=== PATIENT | male | born 1975 | race Caucasian/White ===

== ENCOUNTER 2018-02-09 09:14 | Emergency (ER) | payer OTHER ==
[2018-02-09] MEDS ORDERED: ASPIRIN 81 MG CHEWABLE TABLET ONE (10:08)
[2018-02-09] MEDS ORDERED: Morphine 2 MG/2 ML SYR ONE (10:09)
[2018-02-09] MEDS ORDERED: NA CHLORIDE 0.9% 1,000 ML ONE (10:09)
[2018-02-09 10:13] LABS: Absolute Lymphocytes (CBC) 1.1 K/uL (0.7-4.9); Absolute Monocytes 0.6 K/uL (0.1-1.3); Absolute Neutrophil 3.5 K/uL (1.8-8.0); Basophils % 0.7 % (0-1.3); Eosinophils % 1.7 % (0-4.4); Hematocrit 50.9 % (39.6-49.0); Lymphocytes % 20.4 % (15.3-44.8); MCH 35.2 pg (27.0-35.0); MCV 101.5 fL (80-100); MPV 7.7 fL (7.6-11.3); Monocytes % 10.7 % (3.3-12.3); RBC Red Blood Cell Count 5.02 M/uL (4.33-5.43)
[2018-02-09 10:17] LABS: Protime INR 0.93
[2018-02-09 10:28] LABS: Bicarbonate 27 mEq/L (21-31); Glucose Level 104 mg/dL (65-120); Potassium 3.8 mEq/L (3.6-5.0); Sodium Level 134 mEq/L (135-145)
--- NOTE | 2018-02-09 10:32 | RAD REPORT ---
EXAM DESCRIPTION: Callie Single View02/09/2018 10:25 am CLINICAL HISTORY: Chest pain COMPARISON: none FINDINGS: The lungs appear clear of acute infiltrate. The heart is normal size IMPRESSION: No acute abnormalities displayed
[2018-02-09 10:34] LABS: ALT/SGPT 84 IU/L (10-60); AST/SGOT 159 IU/L (10-42); Albumin 4.4 g/dL (3.2-5.5); Alkaline Phosphatase 74 IU/L (42-121); BUN Blood Urea Nitrogen 10 mg/dL (6-20); Bilirubin Direct 0.4 mg/dL (0-0.2); Bilirubin Total 1.8 mg/dL (0.3-1.2); Creatine Phosphokinase 90 IU/L (22-269); Magnesium 1.6 mg/dL (1.8-2.5); Protein, Total 7.8 g/dL (6.0-8.3)
[2018-02-09 10:37] LABS: CKMB Creatine Kinase MB 1.2 ng/ml (0.3-4.0)
[2018-02-09 11:01] LABS: Lipase 151 U/L (22-51)
--- NOTE | 2018-02-09 11:45 | RAD REPORT ---
EXAM DESCRIPTION: CT - Chest Abdomen W Con - 02/09/2018 11:31 am CLINICAL HISTORY: Chest pain, upper abdominal pain, abnormal liver function COMPARISON: None. TECHNIQUE: During dynamic enhancement using 100 milliliters nonionic IV contrast, axial 5 millimeter thick images of the chest, abdomen and pelvis were obtained. Biphasic technique was utilized through the abdomen. Oral contrast was administered. All CT scans are performed using dose optimization technique as appropriate and may include automated exposure control or mA/KV adjustment according to patient size. FINDINGS: The lungs are clear of mass and infiltrate. No pneumothorax or pleural effusion. No ches t wall mass or abnormal axillary lymphadenopathy seen. No pericardial thickening or effusion. Aorta and pulmonary arterial tree enhance normally. No mediastinal or hilar mass or lymphadenopathy. Patien t has a mild to moderate amount of pneumomediastinum. No endobronchial mass or airway wall defect jeanette ntifiable. There is no esophageal wall thickening, mass or focal defect identifiable. No fluid in the mediastinum. Liver shows diffuse fatty infiltration with no focal liver lesion identifiable. No splenomegaly or fo diana splenic abnormality. A 12 millimeter cyst is present at the pancreatic tail. Trace amount of stra nding is seen in the tissues adjacent to the head of the pancreas. There is some subtle heterogeneity of the pancreatic head parenchyma but no clearly defined mass. Minimal pancreatitis is suspected. Ga llbladder and biliary tree are normal. Symmetric renal function is seen with no hydronephrosis, mass or other significant finding. No adren al abnormalities. No dilated bowel loops or focal ball bowel wall thickening. No free air, free fluid or inflammatory stranding. No hernia, mass or bulky lymphadenopathy. No significant bone or vascular finding. IMPRESSION: Mild to moderate amount of pneumomediastinum without identifiable etiology. Mild pancreatitis changes are evident. There is some heterogeneity of the pancreatic head parenchyma without a definitive mass seen. Correlation is needed with any pancreatitis laboratory findings. After medical management and resolut ion of the acute event, MR imaging may be helpful to determine if the pancreatic head heterogeneity i s clear of mass. Diffuse fatty infiltration of the liver.
--- NOTE | 2018-02-09 12:18 | EKG ---
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
[2018-02-09 12:54] LABS: Urine Blood NEGATIVE (NEG); Urine Glucose NEGATIVE (NEG); Urine Protein NEGATIVE (NEG)
[2018-02-09] MEDS ORDERED: PIPER/TAZO/NS 3.375gm 3.375 GM/100 ML BAG ONE (13:00)
--- NOTE | 2018-02-09 13:46 | EDPHYS ---
Physician Documentation [facility] Name: Clif Gabriel Age: 42 yrs Sex: Male : 1975 Arrival Date: 02/09/2018 Time: 09:17 Bed 18 Private MD: None, None ED Physician Hasmukh Barroso HPI: 02/09 09:57 This 42 yrs old Male presents to ER via Ambulatory with complaints of Chest cp Tightness, Breathing Difficulty. 09:57 The patient or guardian reports chest pain that is located primarily in the substernal cp area, epigastric area. 09:57 Onset: 2 day(s) ago. The pain does not radiate. Associated signs and symptoms: cp Pertinent positives: shortness of breath, Pertinent negatives: cough, headache, lower extremity pain, lower extremity swelling, near syncope, palpitations, syncope, vomiting. 09:57 The chest pain is described as a pressure. cp 09:57 Duration: The patient or guardian reports a single episode, that is still ongoing, and cp unchanged. Historical: - Allergies: 09:48 NKA; iw - Home Meds: 09:48 None [Active]; iw - PMHx: 09:48 None; iw - PSHx: 09:48 Hernia repair; iw - Immunization history:: Adult Immunizations not up to date. - Social history:: Smoking status: Patient uses tobacco products, chewing tobacco. ROS: 10:05 Constitutional: Negative for body aches, chills, fever, poor PO intake. cp 10:05 Eyes: Negative for injury, pain, redness, and discharge. cp 10:05 ENT: Negative for drainage from ear(s), ear pain, sore throat, difficulty swallowing, difficulty handling secretions. 10:05 Neck: Negative for pain with movement, pain at rest, stiffness, swollen nodes, bony tenderness. 10:05 Cardiovascular: Positive for chest pain, of the retrosternal, Negative for edema, palpitations. 10:05 Respiratory: Positive for shortness of breath, Negative for cough, wheezing. 10:05 Abdomen/GI: Positive for abdominal pain, of the epigastric area, Negative for vomiting, diarrhea, constipation, dysphagia, black/tarry stool, rectal bleeding. 10:05 Back: Negative for pain at rest, pain with movement, radiated pain. 10:05 Skin: Negative for cellulitis, rash. 10:05 Neuro: Negative for altered mental status, dizziness, headache, syncope, near syncope, weakness. 10:05 All other systems are negative. Exam: 10:12 Constitutional: The patient appears in no acute distress, alert, awake, cp non-diaphoretic, non-toxic, well developed, well nourished. 10:12 Head/Face: Normocephalic, atraumatic. cp 10:12 Eyes: Pupils equal round and reactive to light, extra-ocular motions intact. Lids and cp lashes normal. Conjunctiva and sclera are non-icteric and not injected. Cornea within normal limits. Periorbital areas with no swelling, redness, or edema. ENT: Nares patent. No nasal discharge, no septal abnormalities noted. Tympanic membranes are normal and external auditory canals are clear. Oropharynx with no redness, swelling, or masses, exudates, or evidence of obstruction, uvula midline. Mucous membranes moist. Neck: Trachea midline, no thyromegaly or masses palpated, and no cervical lymphadenopathy. Supple, full range of motion without nuchal rigidity, or vertebral point tenderness. No Meningismus. Chest/axilla: Normal chest wall appearance and motion. Nontender with no deformity. No lesions are appreciated. 10:12 Cardiovascular: Rate: normal, Rhythm: regular, Pulses: Pulses are 2+ in right radial artery and left radial artery. Heart sounds: murmur, not appreciated, rub, not appreciated, gallop, not appreciated, Edema: is not appreciated, JVD: is not appreciated. 10:12 Respiratory: the patient does not display signs of respiratory distress, Respirations: normal, no use of accessory muscles, no retractions, no splinting, no tachypnea, labored breathing, is not present, Breath sounds: are clear throughout, no decreased breath sounds, no stridor, no wheezing. 10:12 Abdomen/GI: Inspection: abdomen appears normal, Bowel sounds: active, all quadrants, Palpation: soft, in all quadrants, mild abdominal tenderness, in the epigastric area, rebound tenderness, is not appreciated, voluntary guarding, is not appreciated, involuntary guarding, is not appreciated. 10:12 Back: pain, is absent, ROM is normal. 10:12 Musculoskeletal/extremity: Exam is negative for calf tenderness, decreased range of motion, edema, injury. 10:12 Skin: cellulitis, is not appreciated, no rash present. 10:12 Neuro: Orientation: to person, place \T\ time. Mentation: lucid, able to follow commands, Cerebellar function: is grossly normal, Motor: moves all fours, strength is normal, Sensation: no obvious gross deficits. Vital Signs: 09:48 BP 154 / 107; Pulse 89; Resp 18 S; Temp 98.2(O); Pulse Ox 98% on R/A; Weight 83.91 kg; iw Height 6 ft. (182.88 cm); Pain 2/10; 10:37 BP 136 / 94; Pulse 71; Resp 17; Pulse Ox 97% on R/A; tw2 11:45 BP 141 / 97; Pulse 74; Resp 14; Pulse Ox 98% on R/A; tw2 12:42 BP 131 / 97; Pulse 66; Resp 18; Pulse Ox 96% on R/A; tw2 13:34 BP 148 / 105; Pulse 87; Resp 16; Pulse Ox 96% on R/A; tw2 09:48 Body Mass Index 25.09 (83.91 kg, 182.88 cm) iw MDM: 09:45 Patient medically screened. cp 12:15 The patient was given aspirin in the Emergency Department. cp 12:15 Differential diagnosis: abnormal EKG, acute myocardial infarction, acute pericarditis, cp chest wall pain, cholecystitis, Cholelithiasis costochondritis, pancreatitis, pneumonia, pneumothorax, pulmonary embolus, stable angina, thoracic aortic disection, unstable angina, pneumomediastinum. Response to treatment: the patient's symptoms have mildly improved after treatment. 12:30 Data reviewed: vital signs, nurses notes, lab test result(s), EKG, radiologic studies, cp CT scan. 12:30 Test interpretation: by ED physician or midlevel provider: ECG, plain radiologic cp studies. 02/09 09:56 Order name: Basic Metabolic Panel; Complete Time: 11:04 cp 02/09 11:04 Interpretation: Normal except: NA 134; CL 97; CA 10.7. cp 02/09 09:56 Order name: BNP; Complete Time: 11:04 cp 02/09 09:56 Order name: CBC with Diff; Complete Time: 11:04 cp 02/09 11:05 Interpretation: Normal except: HCT 50.9; MCV 101.5; MCH 35.2. 02/09 09:56 Order name: Ckmb; Complete Time: 11:04 02/09 09:56 Order name: CPK; Complete Time: 11:04 02/09 09:56 Order name: LFT's; Complete Time: 11:04 02/09 11:08 Interpretation: Normal except: SGOT 159; SGPT 84; BILIT 1.8; BILID 0.4. 02/09 09:56 Order name: Magnesium; Complete Time: 11:04 02/09 09:56 Order name: PT-INR; Complete Time: 11:04 02/09 09:56 Order name: Ptt, Activated; Complete Time: 11:04 02/09 09:56 Order name: Troponin (emerg Dept Use Only); Complete Time: 11:04 02/09 09:56 Order name: XRAY Chest (1 view); Complete Time: 11:04 02/09 09:56 Order name: Lipase; Complete Time: 11:04 02/09 12:08 Order name: ETOH Level; Complete Time: 13:04 02/09 13:04 Interpretation: Abnormal: ETOH 79. cp 02/09 12:25 Order name: Urine Dipstick--Ancillary (enter results); Complete Time: 13:04 [facility] 02/09 09:56 Order name: EKG; Complete Time: 09:57 02/09 09:56 Order name: Cardiac monitoring; Complete Time: 12:25 02/09 09:56 Order name: EKG - Nurse/Tech; Complete Time: 12:25 02/09 09:56 Order name: IV Saline Lock; Complete Time: 12:25 02/09 09:56 Order name: Labs collected and sent; Complete Time: 12:25 02/09 09:56 Order name: O2 Per Protocol; Complete Time: 12:26 02/09 09:56 Order name: O2 Sat Monitoring; Complete Time: 12:25 02/09 09:56 Order name: Urine Dipstick-Ancillary (obtain specimen); Complete Time: 12:24 16 11:09 Order name: CT Chest Abdomen W/ Contrast; Complete Time: 12:02 cp Administered Medications: 10:10 Drug: Aspirin Chewable Tablet 324 mg Route: PO; tw2 11:45 Follow up: Response: No adverse reaction tw2 10:10 Drug: NS 0.9% 1000 ml Route: IV; Rate: 1 bolus; Site: right antecubital; tw2 11:20 Follow up: Response: No adverse reaction; IV Status: Completed infusion; IV Intake: tw2 1000ml 10:10 Drug: morphine 2 mg Route: IVP; Site: right antecubital; tw2 11:45 Follow up: Response: No adverse reaction; Pain is decreased tw2 13:01 Not Given (cancel per provider): Clindamycin 600 mg IVPB once over 30 mins; (mix in 50 tw2 mL) 13:08 Drug: Zosyn 3.375 grams Route: IVPB; Infused Over: 60 mins; Site: right antecubital; tw2 14:09 Follow up: IV Status: Completed infusion tw2 Disposition: 16:49 Co-signature as Attending Physician, Hasmukh Barroso MD I agree with the assessment and kdr plan of care. Disposition: 02/09/18 13:45 Transfer ordered to [facility]. Diagnosis are Pneumomediastinum, Acute pancreatitis. - Reason for transfer: Higher level of care. - Accepting physician is Luisito Holbrook. - Condition is Stable. - Problem is new. - Symptoms have improved. Signatures: Dispatcher [employer] EDHasmukh Malloy MD MD [facility] Malgorzata Garg, RN RN Patrick Pearson PA PA cp Maris Andersen, RN RN tw2 Corrections: (The following items were deleted from the chart) 13:47 13:45 02/09/2018 13:45 Transfer ordered to [facility]. Diagnosis is cp Chest pain, unspecified. Reason for transfer: Higher level of care. Accepting physician is Luisito Holbrook. Condition is Stable. Problem is new. Symptoms have improved. cp 14:11 13:47 02/09/2018 13:45 Transfer ordered to [facility]. Diagnosis is tw2 Pneumomediastinum; Acute pancreatitis. Reason for transfer: Higher level of care. Accepting physician is Luisito Holbrook. Condition is Stable. Problem is new. Symptoms have improved. cp
--- NOTE | 2018-02-09 13:46 | ER ---
Nurse's Notes [facility] Name: Clif Gabriel Age: 42 yrs Sex: Male : 1975 Arrival Date: 02/09/2018 Time: 09:17 Bed 18 Private MD: None, None Diagnosis: Pneumomediastinum;Acute pancreatitis Presentation: 02/09 09:45 Presenting complaint: Patient states: has had chest tightness since Wednesday, feels like iw indigestion but usually doesn't last this long, feels like he can't take a deep breath, denies n/v, rates pain 2/10 now. Transition of care: patient was not received from another setting of care. Onset of symptoms was February 06, 2018. Initial Sepsis Screen: Does the patient meet any 2 criteria? No. Patient's initial sepsis screen is negative. Does the patient have a suspected source of infection? No. Patient's initial sepsis screen is negative. Care prior to arrival: None. 09:45 Method Of Arrival: Ambulatory iw 09:45 Acuity: REJI 3 iw Historical: - Allergies: 09:48 NKA; iw - Home Meds: 09:48 None [Active]; iw - PMHx: 09:48 None; iw - PSHx: 09:48 Hernia repair; iw - Immunization history:: Adult Immunizations not up to date. - Social history:: Smoking status: Patient uses tobacco products, chewing tobacco. Screenin:49 Abuse screen: Denies threats or abuse. Nutritional screening: No deficits noted. tw2 Tuberculosis screening: No symptoms or risk factors identified. Fall Risk None identified. Assessment: 09:45 General: Appears in no apparent distress. Behavior is calm, cooperative, appropriate tw2 for age. Pain: Complains of pain in chest Pain does not radiate. Pain began 2-3 days ago. Pain: Quality of pain is described as pressure, squeezing. Neuro: Level of Consciousness is awake, alert, obeys commands, Oriented to person, place, time, situation. Cardiovascular: Reports chest pain, shortness of breath, Heart tones S1 S2 Capillary refill < 3 seconds Patient's skin is warm and dry. Respiratory: Airway is patent Respiratory effort is even, unlabored, Respiratory pattern is regular, symmetrical, Breath sounds are clear bilaterally. GI: No signs and/or symptoms were reported involving the gastrointestinal system. Abdomen is flat, Bowel sounds present X 4 quads. : No signs and/or symptoms were reported regarding the genitourinary system. EENT: No signs and/or symptoms were reported regarding the EENT system. Derm: No signs and/or symptoms reported regarding the dermatologic system. Skin is intact, is healthy with good turgor, Skin is dry. Musculoskeletal: Range of motion: intact in all extremities. 10:37 Reassessment: Patient appears in no apparent distress at this time. No changes from tw2 previously documented assessment. Patient and/or family updated on plan of care and expected duration. Pain level reassessed. Patient is alert, oriented x 3, equal unlabored respirations, skin warm/dry/pink. 11:46 Reassessment: Patient appears in no apparent distress at this time. No changes from tw2 previously documented assessment. Patient and/or family updated on plan of care and expected duration. Pain level reassessed. Patient is alert, oriented x 3, equal unlabored respirations, skin warm/dry/pink. 12:42 Reassessment: Patient appears in no apparent distress at this time. No changes from tw2 previously documented assessment. Patient and/or family updated on plan of care and expected duration. Pain level reassessed. Patient is alert, oriented x 3, equal unlabored respirations, skin warm/dry/pink. 13:20 Reassessment: Patient appears in no apparent distress at this time. No changes from tw2 previously documented assessment. Patient and/or family updated on plan of care and expected duration. Pain level reassessed. Patient is alert, oriented x 3, equal unlabored respirations, skin warm/dry/pink. pt states "i have guns in my truck that are in plane sight and i need to lock them up", security notified to escort pt to persona vehicle. Vital Signs: 09:48 BP 154 / 107; Pulse 89; Resp 18 S; Temp 98.2(O); Pulse Ox 98% on R/A; Weight 83.91 kg; iw Height 6 ft. (182.88 cm); Pain 2/10; 10:37 BP 136 / 94; Pulse 71; Resp 17; Pulse Ox 97% on R/A; tw2 11:45 BP 141 / 97; Pulse 74; Resp 14; Pulse Ox 98% on R/A; tw2 12:42 BP 131 / 97; Pulse 66; Resp 18; Pulse Ox 96% on R/A; tw2 13:34 BP 148 / 105; Pulse 87; Resp 16; Pulse Ox 96% on R/A; tw2 09:48 Body Mass Index 25.09 (83.91 kg, 182.88 cm) iw ED Course: 09:17 Patient arrived in ED. mr 09:18 None, None is Private Physician. mr 09:40 No provider procedures requiring assistance completed. Patient maintains SpO2 tw2 saturation greater than 95% on room air. 09:42 Maris Andersen RN is Primary Nurse. tw2 09:42 Placed in gown. Bed in low position. threat monitoring analyst on. Pulse ox on. NIBP on. tw2 09:45 Patrick Pearson PA is PHCP. cp 09:45 Hasmukh Barroso MD is Attending Physician. cp 09:47 Triage completed. iw 09:48 Arm band placed on. iw 10:00 Inserted saline lock: 20 gauge in right antecubital area, using aseptic technique. tw2 Blood collected. 10:06 EKG done, by tree trimming line technician. reviewed by Hasmukh Barroso MD. tc 10:24 X-ray completed. Portable x-ray completed in exam room. Patient tolerated procedure la2 well. 10:25 XRAY Chest (1 view) In Process Unspecified. EDMS 11:[address] vm2 11:27 CT completed. Patient tolerated procedure well. Patient moved back from CT. vm2 11:31 CT Chest Abdomen W/ Contrast In Process Unspecified. EDMS 13:40 Patient admitted, IV remains in place. tw2 13:43 Report given to Giovanna Krueger RN [facility]. tw2 Administered Medications: 10:10 Drug: Aspirin Chewable Tablet 324 mg Route: PO; tw2 11:45 Follow up: Response: No adverse reaction tw2 10:10 Drug: NS 0.9% 1000 ml Route: IV; Rate: 1 bolus; Site: right antecubital; tw2 11:20 Follow up: Response: No adverse reaction; IV Status: Completed infusion; IV Intake: tw2 1000ml 10:10 Drug: morphine 2 mg Route: IVP; Site: right antecubital; tw2 11:45 Follow up: Response: No adverse reaction; Pain is decreased tw2 13:01 Not Given (cancel per provider): Clindamycin 600 mg IVPB once over 30 mins; (mix in 50 tw2 mL) 13:08 Drug: Zosyn 3.375 grams Route: IVPB; Infused Over: 60 mins; Site: right antecubital; tw2 14:09 Follow up: IV Status: Completed infusion tw2 Intake: 11:20 IV: 1000ml; Total: 1000ml. tw2 Outcome: 13:45 ER care complete, transfer ordered by MD. bautista 14:11 Patient left the ED. tw2 14:11 Transferred by ground EMS to [facility]. tw2 14:11 Condition: stable 14:11 Instructed on the need for transfer. Signatures: Dispatcher [employer] EDDE Arlette Cesar Irene, RN Michelle Babb, referral manager EKG Ttc Patrick Pearson PA PA cp Wise, Tara, RN RN tw2 Meghan Marcum [address] [place]2
== END 2018-02-09 14:11 | disposition short-term general hospital (02) ==
LOC: ER 09:14
DX: J98.2 Interstitial emphysema (principal); K85.90 Acute pancreatitis without necrosis or infection, unspecified; Z72.0 Tobacco use
CPT/HCPCS: 36415; 71045; 71260; 74160; 80048; 80076; 80320; 81003; 82550; 82553; 83690; 83735; 83880; 84484; 85025; 85610; 85730; 93005; 96361; 96365; 96375; 99285; J2270; J2543; J7030; Q9967

== ENCOUNTER 2018-04-02 20:03 | Emergency (ER) | payer OTHER ==
[2018-04-02] MEDS ORDERED: TETANUS & DIPHTHERIA TOX,ADULT 0.5 ML VIAL ONE (20:26)
[2018-04-02] MEDS ORDERED: BUPIVACAINE 0.5% PF 10 ML VIAL ONE (21:19)
--- NOTE | 2018-04-02 22:27 | EDPHYS ---
Physician Documentation [facility] Unit Name: Clif Gabriel Age: 42 yrs Sex: Male : 1975 Arrival Date: 04/02/2018 Time: 20:07 Bed 7 Private MD: ED Physician Patrick Alvarez HPI: 04/02 21:00 This 42 yrs old Male presents to ER via Ambulatory with complaints of pm1 Laceration To Leg. 21:00 The patient has a laceration related to: Slipped occurred outdoors, The injury was pm1 accidental. The laceration(s) is(are) located on the left knee. Onset: The symptoms/episode began/occurred just prior to arrival. Associated signs and symptoms: Pertinent negatives: deformity, numbness distal to injury, suspected foreign body. The patient has not experienced similar symptoms in the past. The patient has not recently seen a physician. Patient was fishing and accidentally slipped on the rocks and cut his left knee. Historical: - Allergies: 20:24 NKA; bb - Home Meds: 20:24 None [Active]; bb - PMHx: 20:24 None; bb - PSHx: 20:24 Hernia repair; bb - Immunization history:: Adult Immunizations up to date, Last tetanus immunization: > 10 years ago. - Social history:: Smoking status: Patient/guardian denies using tobacco, Patient uses alcohol, occasionally. Patient/guardian denies using street drugs. - Ebola Screening: : No symptoms or risks identified at this time. ROS: 21:00 Constitutional: Negative for fever, chills, and weight loss, Cardiovascular: Negative pm1 for chest pain, palpitations, and edema, Respiratory: Negative for shortness of breath, cough, wheezing, and pleuritic chest pain, Abdomen/GI: Negative for abdominal pain, nausea, vomiting, diarrhea, and constipation, Back: Negative for injury and pain. 21:00 Neuro: Negative for headache, weakness, numbness, tingling, and seizure. 21:00 MS/extremity: Positive for laceration, of the left knee. 21:00 Skin: Positive for laceration(s), of the left knee. Exam: 21:00 Constitutional: This is a well developed, well nourished patient who is awake, alert, pm1 and in no acute distress. Head/Face: Normocephalic, atraumatic. Eyes: Pupils equal round and reactive to light, extra-ocular motions intact. Lids and lashes normal. Conjunctiva and sclera are non-icteric and not injected. Cornea within normal limits. Periorbital areas with no swelling, redness, or edema. ENT: Nares patent. No nasal discharge, no septal abnormalities noted. Tympanic membranes are normal and external auditory canals are clear. Oropharynx with no redness, swelling, or masses, exudates, or evidence of obstruction, uvula midline. Mucous membranes moist. Neck: Trachea midline, no thyromegaly or masses palpated, and no cervical lymphadenopathy. Supple, full range of motion without nuchal rigidity, or vertebral point tenderness. No Meningismus. Chest/axilla: Normal chest wall appearance and motion. Nontender with no deformity. No lesions are appreciated. Cardiovascular: Regular rate and rhythm with a normal S1 and S2. No gallops, murmurs, or rubs. Normal PMI, no JVD. No pulse deficits. Respiratory: Lungs have equal breath sounds bilaterally, clear to auscultation and percussion. No rales, rhonchi or wheezes noted. No increased work of breathing, no retractions or nasal flaring. Abdomen/GI: Soft, non-tender, with normal bowel sounds. No distension or tympany. No guarding or rebound. No evidence of tenderness throughout. Back: No spinal tenderness. No costovertebral tenderness. Full range of motion. 21:00 Musculoskeletal/extremity: Extremities: grossly normal except: noted in the left knee: laceration, FROM intact. No involvement of joint space suspected with laceration, There is no evidence of decreased ROM. 21:00 Skin: Appearance: normal except for affected area, injury, laceration(s), of the left knee. 21:00 Neuro: Orientation: is normal, Motor: moves all fours, Gait: is steady, at a normal pace, without difficulty. Vital Signs: 20:24 BP 125 / 90; Pulse 93; Resp 18 S; Temp 99.2(O); Pulse Ox 97% on R/A; Weight 83.91 kg bb (R); Height 6 ft. 0 in. (182.88 cm) (R); Pain 0/10; 21:40 BP 112 / 89; Pulse 76; Resp 18; Pulse Ox 97% on R/A; Pain 0/10; aa1 22:40 BP 118 / 87; Pulse 72; Resp 16 S; Temp 98.9(O); Pulse Ox 99% on R/A; bb 20:24 Body Mass Index 25.09 (83.91 kg, 182.88 cm) bb Laceration: 22:20 Wound Repair of 4cm ( 1.6in ) subcutaneous laceration to left knee. Distal jmm neuro/vascular/tendon intact. Anesthesia: Local anesthetic administered with 5 mls of 0.5% marcaine. Wound prep: Moderate cleansing with betadine by sd, Copious irrigation. Skin closed with 5 4-0 Prolene using simple sutures and sterile technique. Patient tolerated well. MDM: 20:38 Patient medically screened. pm1 22:25 Data reviewed: vital signs. Data interpreted: Pulse oximetry: on room air is 97 %. pm1 Interpretation: normal. Counseling: I had a detailed discussion with the patient and/or guardian regarding: the historical points, exam findings, and any diagnostic results supporting the discharge/admit diagnosis, radiology results, the need for outpatient follow up, to return to the emergency department if symptoms worsen or persist or if there are any questions or concerns that arise at home. 04/02 21:05 Order name: Knee Left 3 View XRAY pm1 04/02 21:05 Order name: Prolene, Sutures; Complete Time: 22:27 pm1 04/02 21:05 Order name: Dressing - Wound; Complete Time: 22:27 pm1 04/02 21:05 Order name: Gloves, Sterile; Complete Time: 21:17 pm1 04/02 21:05 Order name: Setup Suture Tray; Complete Time: 21:17 pm1 Administered Medications: 20:30 Drug: Tetanus-Diphtheria Toxoid Adult 0.5 ml {Manager Cafe: [employer]. Exp: aa1 06/15/2020. Lot #: [id number]. } Route: IM; Site: right deltoid; 21: Follow up: Response: No adverse reaction aa1 21:30 Drug: Lidocaine (1 %) 5 mg {Note: to affected area by P Marinas COMPUTER SYSTEMS INFORMATION DIRECTOR.} Route: bb Infiltration; 22:28 Follow up: Response: No adverse reaction bb 21:30 Drug: Marcaine (0.5 %) 10 ml {Note: to affected area by P Marinas COMPUTER SYSTEMS INFORMATION DIRECTOR.} Volume: 10 ml; bb Route: Infiltration; 22:28 Follow up: Response: No adverse reaction bb 22:27 Drug: Doxycycline 100 mg Route: PO; bb 22:28 Follow up: Response: Medication administered at discharge. bb Disposition: 04/02/18 22:27 Discharged to Home. Impression: Laceration without foreign body, left knee. - Condition is Stable. - Discharge Instructions: Laceration Care, Adult. - Prescriptions for Tylenol- Codeine #3 300-30 mg Oral Tablet - take 2 tablets by ORAL route every 6 hours As needed; 20 tablet. Doxycycline Hyclate 100 mg Oral Tablet - take 1 tablet by ORAL route every 12 hours; 20 tablet. - Medication Reconciliation Form, Thank You Letter, Antibiotic Education, Prescription Opioid Use form. - Follow up: Emergency Department; When: As needed; Reason: Worsening of condition. Follow up: Abraham Rhoades MD; When: 2 - 3 days; Reason: Wound Recheck, Recheck today's complaints, Continuance of care, Re-evaluation by your physician. - Problem is new. - Symptoms have improved. Addendum: 04/04/2018 09:25 Co-signature as Attending Physician, Patrick Alvarez MD I agree with the assessment and c de la fuente plan of care. Signatures: Dispatcher [employer] Lynsey Dukes, RN RN aa1 Patrick Alvarez MD MD cha Mickail, Joel, PA PA jmm Ballard, Brenda, RN RN bb Marinas, Patrick, NP COMPUTER SYSTEMS INFORMATION DIRECTOR pm1 Corrections: (The following items were deleted from the chart) 04/02 22:28 22:27 04/02/2018 22:27 Discharged to Home. Impression: Laceration without foreign body, pm1 left knee. Condition is Stable. Forms are Medication Reconciliation Form, Thank You Letter, Antibiotic Education, Prescription Opioid Use. Follow up: Emergency Department; When: As needed; Reason: Worsening of condition. Follow up: Abraham Rhoades; When: 7 - 10 days; Reason: Wound Recheck, Recheck today's complaints, Continuance of care, Staple/Suture removal, Re-evaluation by your physician. Problem is new. Symptoms have improved. pm1 22:41 22:28 04/02/2018 22:27 Discharged to Home. Impression: Laceration without foreign body, bb left knee. Condition is Stable. Discharge Instructions: Laceration Care, Adult. Prescriptions for Tylenol-Codeine #3 300-30 mg Oral Tablet - take 2 tablets by ORAL route every 6 hours As needed; 20 tablet, Doxycycline Hyclate 100 mg Oral Tablet - take 1 tablet by ORAL route every 12 hours; 20 tablet. and Forms are Medication Reconciliation Form, Thank You Letter, Antibiotic Education, Prescription Opioid Use. Follow up: Emergency Department; When: As needed; Reason: Worsening of condition. Follow up: Abraham Rhoades; When: 2 - 3 days; Reason: Wound Recheck, Recheck today's complaints, Continuance of care, Re-evaluation by your physician. Problem is new. Symptoms have improved. pm1
--- NOTE | 2018-04-02 22:27 | ER ---
Nurse's Notes [facility] Name: Clif Gabriel Age: 42 yrs Sex: Male : 1975 Arrival Date: 04/02/2018 Time: 20:07 Bed 7 Private MD: Diagnosis: Laceration without foreign body, left knee Presentation: 04/02 20:21 Presenting complaint: Patient states: he was out fishing and was trying to retrieve his bb jessie and phone in the water and cut his left knee about 2 hours ago. Transition of care: patient was not received from another setting of care. Complicating Factors: There are no complicating factors for this patient. Onset of symptoms was April 02, 2018. Risk Assessment: Do you want to hurt yourself or someone else? Patient reports no desire to harm self or others. Initial Sepsis Screen: Does the patient meet any 2 criteria? No. Patient's initial sepsis screen is negative. Does the patient have a suspected source of infection? No. Patient's initial sepsis screen is negative. Care prior to arrival: None. 20:21 Method Of Arrival: Ambulatory bb 20:21 Acuity: REJI 3 bb Historical: - Allergies: 20:24 NKA; bb - Home Meds: 20:24 None [Active]; bb - PMHx: 20:24 None; bb - PSHx: 20:24 Hernia repair; bb - Immunization history:: Adult Immunizations up to date, Last tetanus immunization: > 10 years ago. - Social history:: Smoking status: Patient/guardian denies using tobacco, Patient uses alcohol, occasionally. Patient/guardian denies using street drugs. - Ebola Screening: : No symptoms or risks identified at this time. Screenin:30 Abuse screen: Denies threats or abuse. Denies injuries from another. Nutritional aa1 screening: No deficits noted. Tuberculosis screening: No symptoms or risk factors identified. Fall Risk None identified. Assessment: 20:30 General: Appears in no apparent distress. comfortable, Behavior is calm, cooperative, aa1 appropriate for age. Pain: Complains of pain in left knee. Neuro: Level of Consciousness is awake, alert, obeys commands, Oriented to person, place, time, situation, Moves all extremities. Full function Gait is steady. Respiratory: Airway is patent Respiratory effort is even, unlabored, Respiratory pattern is regular, symmetrical. GI: No signs and/or symptoms were reported involving the gastrointestinal system. : No signs and/or symptoms were reported regarding the genitourinary system. EENT: No signs and/or symptoms were reported regarding the EENT system. Derm: Skin is intact, is healthy with good turgor, Skin is pink, warm \T\ dry. Musculoskeletal: Circulation, motion, and sensation intact. Capillary refill < 3 seconds, Range of motion: intact in all extremities. Injury Description: Laceration sustained to left knee is 2.6 to 7.5 cm long, not bleeding, was sustained 1-2 hours ago. 22:38 Reassessment: No changes from previously documented assessment. Patient is alert, bb oriented x 3, equal unlabored respirations, skin warm/dry/pink. suture line intact, bandage in place, pt verbalized understanding of and agrees to plan of care discharge instructions given pt ambulated to exit. Vital Signs: 20:24 BP 125 / 90; Pulse 93; Resp 18 S; Temp 99.2(O); Pulse Ox 97% on R/A; Weight 83.91 kg bb (R); Height 6 ft. 0 in. (182.88 cm) (R); Pain 0/10; 21:40 BP 112 / 89; Pulse 76; Resp 18; Pulse Ox 97% on R/A; Pain 0/10; aa1 22:40 BP 118 / 87; Pulse 72; Resp 16 S; Temp 98.9(O); Pulse Ox 99% on R/A; bb 20:24 Body Mass Index 25.09 (83.91 kg, 182.88 cm) bb ED Course: 20:07 Patient arrived in ED. al2 20:21 Lynsey Hope, RN is Primary Nurse. aa1 20:22 Triage completed. bb 20:24 Arm band placed on Patient placed in an exam room, on a stretcher, on pulse oximetry. bb 20:30 Patient has correct armband on for positive identification. Bed in low position. Call aa1 light in reach. Pulse ox on. NIBP on. 20:34 Flo Cross NP is PHCP. pm1 20:34 Patrick Alvarez MD is Attending Physician. pm1 21:09 Wound care: to laceration located on left knee was cleaned with Hibiclens, irrigated aa1 with normal saline, Patient tolerated well. 21:30 Assist provider with laceration repair on left leg that was between 2.6 to 7.5 cm using candelario sutures. Set up tray. Performed by Flo Cross IDENTITY ACCESS MANAGEMENT ARCHITECT Dressed with 4X4s, Kerlix, john wrap Patient tolerated well. 21:52 X-ray completed. Portable x-ray completed in exam room. Patient tolerated procedure la2 well. 21:56 Knee Left 3 View XRAY In Process Unspecified. EDMS 22:26 Abraham Rhoades MD is Referral Physician. pm1 22:41 Patient did not have IV access during this emergency room visit. bb Administered Medications: 20:30 Drug: Tetanus-Diphtheria Toxoid Adult 0.5 ml {Director Content Marketing: [employer]. Exp: aa1 06/15/2020. Lot #: [id number]. } Route: IM; Site: right deltoid; 21:09 Follow up: Response: No adverse reaction aa1 21:30 Drug: Lidocaine (1 %) 5 mg {Note: to affected area by Matthias Cross IDENTITY ACCESS MANAGEMENT ARCHITECT.} Route: bb Infiltration; 22:28 Follow up: Response: No adverse reaction bb 21:30 Drug: Marcaine (0.5 %) 10 ml {Note: to affected area by Matthias Cross NP.} Volume: 10 ml; bb Route: Infiltration; 22:28 Follow up: Response: No adverse reaction bb 22:27 Drug: Doxycycline 100 mg Route: PO; bb 22:28 Follow up: Response: Medication administered at discharge. bb Outcome: 22:27 Discharge ordered by MD. pm1 22:41 Discharged to home ambulatory. bb 22:41 Condition: stable 22:41 Discharge instructions given to patient, Instructed on discharge instructions, follow up and referral plans. medication usage, wound care, Demonstrated understanding of instructions, follow-up care, medications, wound care, Prescriptions given X 2. 22:41 Patient left the ED. bb Signatures: Dispatcher [employer] EDMS Lynsey Hope RN RN aa1 Ladi Betancourt RN RN bb Marinas, Patrick, NP IDENTITY ACCESS MANAGEMENT ARCHITECT pm1 [address] Siegel la2 Bia Ahmadi2
[2018-04-02] MEDS ORDERED: DOXYCYCLINE 100 MG CAP PO ONE (22:28)
--- NOTE | 2018-04-03 13:16 | RAD REPORT ---
EXAM DESCRIPTION: RAD - Knee Left 3 View - 04/02/2018 9:56 pm CLINICAL HISTORY: laceration Pain COMPARISON: No comparisons FINDINGS: Soft tissue laceration is seen anterior to the patella. Tiny avulsion fragment is suspecte d off the superior patellar pole. Moderate soft tissue swelling.
== END 2018-04-02 22:41 | disposition home or self-care (01) ==
LOC: ER 20:03
PROC: 0JQP0ZZ Repair Left Lower Leg Subcutaneous Tissue and Fascia, Open Approach (ICD-10-PCS; principal; 2018-04-02)
DX: S81.012A Laceration without foreign body, left knee, initial encounter (principal); W01.118A Fall on same level from slipping, tripping and stumbling with subsequent striking against other sharp object, initial encounter; Y93.89 Activity, other specified; Y92.89 Other specified places as the place of occurrence of the external cause; Z23 Encounter for immunization
CPT/HCPCS: 90714; 99284